=== PATIENT | female | born 1940 | race Caucasian/White ===

== ENCOUNTER → 2019-03-09 10:01 | Outpatient (CLI) | payer MEDICARE, BC ==
[2015-01-26 06:53] VITALS: BMI 19.9
[~2019-03-09 10:01] MED LIST: BIOTIN5 MG PO; CO Q-10100 MG PO; EZFE 200200 MG PO; HYDROCODONE-APA1 TAB PO; LIBRAX CAPSULE1 CAP PO; SYNTHROID25 MCG PO; ZOLOFT50 MG PO
--- NOTE | 2019-03-12 11:28 | ST ---
PATIENT:KELECHI SALINAS MEDICAL RECORD: [id number] SEX: F LOCATION:[facility] ORDER #: ADMISSION DATE: 03/09/19 AGE OF PATIENT: 78 REFERRING PHYSICIAN: INTERPRETING PHYSICIAN: LACEY TOLENTINO MD DATE OF SERVICE: 03/09/2019 PROCEDURE: Nuclear stress test. INDICATION: Angina, abnormal ECG. She was exercised on standard Jean-Paul protocol for 5 minutes, terminated due to achievement of maximum heart rate response with 31 mCi of sestamibi injected at peak stress, 11 mCi used previously for rest images. FINDINGS: Gated SPECT reveals preserved ejection fraction at 78% with good wall motion and thickening and brightening throughout all segments. SPECT imaging Cardiolite was used as myocardial fusion agent. There is homogeneous uptake throughout all segments at rest and stress with no evidence of inducible ischemia or previous infarction. OVERALL IMPRESSION: 1. This is a normal nuclear stress test with no evidence of inducible ischemia or previous infarction. 2. Gated SPECT reveals a preserved ejection fraction at 78%. In this patient with ongoing symptomatology, the current scan does not suggest the presence of hemodynamically significant coronary artery disease. Evaluate noncardiac etiology of chest pain. TRANSINT:[id number] Voice Confirmation ID: [id number] DOCUMENT ID: [id number] LACEY TOLENTINO MD at 1128 CC: [facility] [id number] DICTATION DATE: 03/10/19 0910 SENIOR QUALITY ENGINEER: 03/11/[address] [facility] CLI 03/09/19 [place] [id number]
== END | disposition home or self-care (01) ==
LOC: D.HCCARDIO 10:00
PROVIDERS: ATTEND Internal Medicine Interventional Cardiology
DX: I20.9 Angina pectoris, unspecified (principal)